=== PATIENT | female | born 1950 | race Caucasian/White ===

== ENCOUNTER → 2019-08-17 | Outpatient (CLI) | payer OTHER, MEDICARE ==
[~2019-08-17] MED LIST: ALBU18HF7 IH; ASPI-1197 PO; CALCIUM PO; CHOL200074 PO; DICL4100G TP; DOCU100C33 PO; DULO60CA64 PO; ESOM40CA54 PO; FAMC250T PO; FLUT16H NASAL; FLUT1BLS IH; FURO40TA5 PO; GUAI118S23 PO; ISOS30TA6 PO; LEVO112T7 PO; LEVO500T2 PO; LOSA25TA41 PO; MONT10TA26 PO; NITR0.4T50 SL; NIZO215C TP; OMEGA 3 PO; POTA10TA11 PO; PRAV80TA21 PO; TIOT4MIS2 IH; VERA120T20 PO
== END | disposition home or self-care (01) ==
LOC: SHCH 10:14
PROVIDERS: ATTEND Internal Medicine Cardiovascular Disease
DX: I87.2 Venous insufficiency (chronic) (peripheral) (principal)
CPT/HCPCS: 93970

== ENCOUNTER → 2020-05-18 | Outpatient (CLI) | payer OTHER, MEDICARE ==
[~2020-05-18] MED LIST changes: -ISOS30TA6 PO; +ISOS30TA92 PO; -MONT10TA26 PO; +MONT10TA32 PO
== END | disposition home or self-care (01) ==
LOC: RAH 08:39
PROVIDERS: ATTEND Physical Medicine & Rehabilitation
DX: M40.40 Postural lordosis, site unspecified (principal); M50.33 Other cervical disc degeneration, cervicothoracic region; M48.03 Spinal stenosis, cervicothoracic region; M25.78 Osteophyte, vertebrae
CPT/HCPCS: 72141

== ENCOUNTER → 2020-07-11 | Outpatient (CLI) | payer OTHER, MEDICARE | END | disposition home or self-care (01) | LOC: RAH 11:09 | PROVIDERS: ATTEND Physical Medicine & Rehabilitation | DX: M47.816 Spondylosis without myelopathy or radiculopathy, lumbar region (principal); M85.88 Other specified disorders of bone density and structure, other site | CPT/HCPCS: 72114 ==

== ENCOUNTER → 2020-12-06 | Outpatient (CLI) | payer MEDICARE ==
[~2020-12-06] MED LIST changes: +MONT-39 PO; -MONT10TA32 PO; +POTA-183 PO; -POTA10TA11 PO
[2020-12-06 12:50] LABS: BASOPHILS % (AUTO) 0.5 % (0.0-5.0); EOSINOPHILS % (AUTO) 0.1 % (0.0-8.0); HEMATOCRIT 37.4 % (36-48); LYMPHOCYTES % (AUTO) 7.8 % (21.0-51.0); MEAN CORPUSCULAR HGB CONC 31.3 g/dL (32.0-36.0); MEAN CORPUSCULAR VOLUME 95.9 fL (79-99); MONOCYTES % (AUTO) 5.8 % (3.0-13.0); PLATELET COUNT (AUTO) 263 K/uL (130-400); RED CELL DISTRIBUTION WIDTH 14.3 % (11.0-15.5); WHITE BLOOD COUNT (AUTO) 11.6 K/uL (4.8-10.8)
== END | disposition home or self-care (01) ==
LOC: LAB 11:08
PROVIDERS: ATTEND Internal Medicine Critical Care Medicine
DX: J44.1 Chronic obstructive pulmonary disease with (acute) exacerbation (principal); E11.9 Type 2 diabetes mellitus without complications; E78.5 Hyperlipidemia, unspecified; E78.00 Pure hypercholesterolemia, unspecified; I25.2 Old myocardial infarction; J45.998 Other asthma; I50.9 Heart failure, unspecified
CPT/HCPCS: 36415; 82785; 85025